=== PATIENT | male | born 2000 | race Caucasian/White ===

== ENCOUNTER 2020-05-02 21:33 | Emergency (ER) | payer BC ==
[2020-05-02] MEDS ORDERED: Ketorolac 60 MG/2 ML SDV IM ONE (22:09)
--- NOTE | 2020-05-02 22:11 | EDM.PDOC ---
ED HPI GENERAL MEDICAL PROBLEM - General Chief Complaint: Cardiovascular Problem Stated Complaint: LEFT SIDE/CHEST PAIN Time Seen by Provider: 05/02/20 22:02 Source of Information: Reports: Patient, Family, RN Notes Reviewed History Limitations: Reports: No Limitations - History of Present Illness INITIAL COMMENTS - FREE TEXT/NARRATIVE: 20-year-old gentleman presents emergency department with a complaint of chest pain, he states he was at rest sudden onset of chest pain 10 out of 10 is now subsided maybe 1 out of 10 he has point specific underneath his left breast in the mid axillary line he was diaphoretic did have some nausea was short of breath Left Pain Score (Numeric/FACES): 2 - Related Data Allergies Allergy/AdvReac Type Severity Reaction Status Date / Time No Known Allergies Allergy Verified 05/02/20 21:44 Home Meds: Home Meds Albuterol [Proventil HFA] 2 puff INH QID PRN 07/02/14 [History] Past Medical History HEENT History: Reports: Otitis Media Respiratory History: Reports: Asthma Gastrointestinal History: Reports: Other (See Below) Other Gastrointestinal History: Impacted bowel. Musculoskeletal History: Reports: Other (See Below) Other Musculoskeletal History: Dislocated patela Neurological History: Reports: Concussion, Migraines Psychiatric History: Reports: ADHD Dermatologic History: Reports: Other (See Below) Other Dermatologic History: acne - Infectious Disease History Infectious Disease History: Reports: Chicken Pox - Past Surgical History Head Surgeries/Procedures: Reports: None HEENT Surgical History: Reports: None Respiratory Surgical History: Reports: None GI Surgical History: Reports: None Neurological Surgical History: Reports: None Musculoskeletal Surgical History: Reports: Arthroscopic Knee, Shoulder Surgery Dermatological Surgical History: Reports: None Social & Family History - Tobacco Use Smoking Status *Q: Never Smoker Second Hand Smoke Exposure: No - Caffeine Use Caffeine Use: Reports: Coffee, Energy Drinks, Soda - Recreational Drug Use Recreational Drug Use: No - Living Situation & Occupation Living situation: Reports: Single, with Family Occupation: Student ED ROS GENERAL - Review of Systems Review Of Systems: See Below Constitutional: Reports: Diaphoresis Respiratory: Reports: Shortness of Breath Cardiovascular: Reports: Chest Pain GI/Abdominal: Reports: Nausea Musculoskeletal: Reports: No Symptoms ED EXAM, GENERAL - Physical Exam Exam: See Below Exam Limited By: No Limitations General Appearance: Alert, WD/WN, No Apparent Distress Respiratory/Chest: No Respiratory Distress, Lungs Clear, Normal Breath Sounds, No Accessory Muscle Use, Chest Non-Tender Cardiovascular: Regular Rate, Rhythm, No Murmur GI/Abdominal: Soft, Non-Tender Course - Vital Signs Last Recorded V/S: Last Vital Signs Temp 97.0 F 05/02/20 21:47 Pulse 58 L 05/02/20 22:59 Resp 10 L 05/02/20 22:59 BP 125/63 05/02/20 22:59 Pulse Ox 99 05/02/20 22:59 - Orders/Labs/Meds Orders: Active Orders 24 hr Category Date Time Status Cardiac Monitoring [RC] .As Directed Care 05/02/20 22:09 Active EKG Documentation Completion [RC] ASDIRECTED Care 05/02/20 22:09 Active Chest 2V [CR] Stat Exams 05/02/20 22:09 Taken EKG 12 Lead [EK] Stat Ther 05/02/20 22:09 Ordered Labs: Laboratory Tests 05/02/20 05/02/20 Range/Units 22:23 22:23 WBC 8.2 (4.5-11.0) K/uL RBC 4.83 (4.30-5.90) M/uL Hgb 14.2 (12.0-15.0) g/dL Hct 41.6 (40.0-54.0) % MCV 86 (80-98) fL MCH 29 (27-31) pg MCHC 34 (32-36) % Plt Count 267 (150-400) K/uL Neut % (Auto) 63 (36-66) % Lymph % (Auto) 27 (24-44) % [place] % (Auto) 7 H (2-6) % Eos % (Auto) 2 (2-4) % Baso % (Auto) 0 (0-1) % Sodium 141 (140-148) mmol/L Potassium 4.2 (3.6-5.2) mmol/L Chloride 104 (100-108) mmol/L Carbon Dioxide 28 (21-32) mmol/L Anion Gap 8.7 (5.0-14.0) mmol/L BUN 14 (7-18) mg/dL Creatinine 1.3 (0.8-1.3) mg/dL Est Cr Clr Drug Dosing 117.18 mL/min Estimated GFR (MDRD) > 60 (>60) Glucose 108 H (74-106) mg/dL Calcium 8.9 (8.5-10.1) mg/dL Total Bilirubin 0.3 (0.2-1.0) mg/dL AST 13 L (15-37) U/L ALT 26 (12-78) U/L Alkaline Phosphatase 63 (46-116) U/L Troponin I < 0.017 (0.000-0.056) ng/mL C-Reactive Protein 0.05 (0.0-0.3) mg/dL Total Protein 7.4 (6.4-8.2) g/dL Albumin 4.0 (3.4-5.0) g/dL Globulin 3.4 (2.3-3.5) g/dL Albumin/Globulin Ratio 1.2 (1.2-2.2) Meds: Medications Discontinued Medications Generic Name Dose Route Start Last Admin Trade Name Freq PRN Reason Stop Dose Admin Ketorolac Tromethamine 60 mg 05/02/20 22:09 05/02/20 22:25 Toradol IM 05/02/20 22:10 60 mg ONETIME ONE Administration Departure - Departure Time of Disposition: 23:28 Disposition: Home, Self-Care 01 Condition: Fair Clinical Impression: Chest wall pain Referrals: Luis Messina MD [Primary Care Provider] - Forms: ED Department Discharge Additional Instructions: Continue with anti-inflammatories please followup with your primary care provider in 3-5 days if not better, please call return to the emergency department with worsening of symptoms. Sepsis Event Note (ED) - Evaluation Sepsis Screening Result: No Definite Risk - Focused Exam Vital Signs: Vital Signs Temp Pulse Resp BP Pulse Ox 05/02/20 22:59 58 L 10 L 125/63 99 05/02/20 22:35 68 20 116/65 97 05/02/20 21:47 97.0 F 73 14 131/68 98 05/02/20 21:44 97.0 F 73 14 131/68 98 - My Orders Last 24 Hours: My Active Orders 05/02/20 22:09 Cardiac Monitoring [RC] .As Directed EKG Documentation Completion [RC] ASDIRECTED Chest 2V [CR] Stat EKG 12 Lead [EK] Stat - Assessment/Plan Last 24 Hours: My Active Orders 05/02/20 22:09 Cardiac Monitoring [RC] .As Directed EKG Documentation Completion [RC] ASDIRECTED Chest 2V [CR] Stat EKG 12 Lead [EK] Stat Plan: Assessment Acuity = acute Site and laterality = chest wall pain Etiology = unknown muscle skeletal Manifestations = none Location of injury = Home Lab values = CBC, CMP, troponin, EKG, chest x-ray all within normal limits Plan Good improvement with Toradol provided in the ED continue with anti- inflammatories follow-up primary care 3 to 5 days if not better This note was dictated using [employer] voice recognition software please call with any questions on syntax or grammar.
[2020-05-02 22:59] VITALS: BP 125/63; PULSE 58
--- NOTE | 2020-05-04 09:45 | CR ---
CHEST: 2 view CLINICAL HISTORY:Chest pain COMPARISON:None FINDINGS: The heart size, pulmonary vascularity and hilar structures are normal. No infiltrate effusion or pneumothorax is seen. IMPRESSION: No acute cardiopulmonary process.
== END 2020-05-02 23:40 | disposition home or self-care (01) ==
LOC: JP.ED 21:33
DX: R07.89 Other chest pain (principal)
CPT/HCPCS: 36415; 71046; 80053; 84484; 85025; 86140; 93005; 96372; 99285; J1885; 93010

== ENCOUNTER 2021-09-22 20:14 | Emergency (ER) | payer BC ==
[2021-09-22 20:27] VITALS: BP 135/78; PULSE 99
--- NOTE | 2021-09-22 20:55 | EDM.PDOC ---
ED HPI GENERAL MEDICAL PROBLEM - General Stated Complaint: RT LEG INJURY Time Seen by Provider: 09/22/21 20:30 Source of Information: Reports: Patient, Family History Limitations: Reports: No Limitations - History of Present Illness INITIAL COMMENTS - FREE TEXT/NARRATIVE: 21-year-old male tried to brace himself with his right leg outside of a bobcat while he was moving today, when his leg got stuck and awkwardly crushed underneath the door area of the bobcat. He has swelling and pain around the ankle, lower right leg and foot. He continued to ambulate for 3 hours afterwards and now has bruising and swelling and significant discomfort. No obvious deformity, no other injury. Onset: Sudden Duration: Hour(s): (Occurred around 6 hours ago) Location: Reports: Lower Extremity, Right Associated Symptoms: Reports: No Other Symptoms Right Ankle Pain Score (Numeric/FACES): 5 - Related Data Allergies Allergy/AdvReac Type Severity Reaction Status Date / Time No Known Allergies Allergy Verified 05/02/20 21:44 Home Meds: Home Meds Albuterol [Proventil HFA] 2 puff INH QID PRN 07/02/14 [History] Past Medical History HEENT History: Reports: Otitis Media Respiratory History: Reports: Asthma Gastrointestinal History: Reports: Other (See Below) Other Gastrointestinal History: Impacted bowel. Musculoskeletal History: Reports: Other (See Below) Other Musculoskeletal History: Dislocated patela Neurological History: Reports: Concussion, Migraines Psychiatric History: Reports: ADHD Dermatologic History: Reports: Other (See Below) Other Dermatologic History: acne - Infectious Disease History Infectious Disease History: Reports: Chicken Pox - Past Surgical History Head Surgeries/Procedures: Reports: None HEENT Surgical History: Reports: None Respiratory Surgical History: Reports: None GI Surgical History: Reports: None Neurological Surgical History: Reports: None Musculoskeletal Surgical History: Reports: Arthroscopic Knee, Shoulder Surgery Dermatological Surgical History: Reports: None Social & Family History - Tobacco Use Tobacco Use Status *Q: Current Every Day Tobacco User Years of Tobacco use: 5 Packs/Tins Daily: 1 - Caffeine Use Caffeine Use: Reports: Coffee, Energy Drinks, Soda - Living Situation & Occupation Living situation: Reports: Single, with Family Occupation: Student Review of Systems - Review of Systems Review Of Systems: See Below Constitutional: Denies: Fever Respiratory: Reports: No Symptoms Cardiovascular: Reports: No Symptoms Genitourinary: Reports: No Symptoms Musculoskeletal: Reports: Other (See HPI) Skin: Reports: Bruising (Some bruising developing over the lateral ankle on the right side) Neurological: Denies: Paresthesia ED EXAM, GENERAL - Physical Exam Exam: See Below Exam Limited By: No Limitations General Appearance: Alert, No Apparent Distress Head: Atraumatic Respiratory/Chest: No Respiratory Distress Extremities: Other (Exam is otherwise limited to the lower extremities. The knees are symmetric and nontender, he has swelling over the lateral malleolus of the right ankle with tenderness to palpation. There is no crepitus but there is significant bony tenderness in the ankle and foot) Neurological: Alert, Oriented Course - Vital Signs Last Recorded V/S: Last Vital Signs Temp 98.6 F 09/22/21 20:26 Pulse 99 09/22/21 20:26 Resp 16 09/22/21 20:26 BP 135/78 09/22/21 20:26 Pulse Ox 99 09/22/21 20:26 - Orders/Labs/Meds Orders: Active Orders 24 hr Category Date Time Status Ankle Min 3V Rt [CR] Stat Exams 09/22/21 20:25 Taken Foot Comp Min 3V Rt [CR] Stat Exams 09/22/21 20:25 Taken - Re-Assessments/Exams Free Text/Narrative Re-Assessment/Exam: 09/22/21 20:53 X-rays were taken of the right foot and right ankle, all were negative. To 3 inch Santos wraps were applied through the foot ankle and lower extremity and he can use crutches for the next few days as he increase his activity. He was discharged with an ankle sprain. Departure - Departure Time of Disposition: 20:59 Disposition: Home, Self-Care 01 Clinical Impression: Sprain of right ankle Qualifiers: Encounter type: initial encounter Involved ligament of ankle: anterior talofibular ligament Qualified Code(s): S93.491A - Sprain of other ligament of right ankle, initial encounter - Discharge Information Instructions: Ankle Sprain Referrals: PCP,None [Primary Care Provider] - Forms: ED Department Discharge Care Plan Goals: Keep foot and lower leg wrapped to reduce swelling, elevate if able, and use crutches for ambulation for the next couple of days. Increase activity as tolerated and use ibuprofen or naproxen for pain control if needed. Consider rechecking next week if not improving satisfactorily. Sepsis Event Note (ED) - Focused Exam Vital Signs: Vital Signs Temp Pulse Resp BP Pulse Ox 09/22/21 20:26 98.6 F 99 16 135/78 99 - My Orders Last 24 Hours: My Active Orders 09/22/21 20:25 Ankle Min 3V Rt [CR] Stat Foot Comp Min 3V Rt [CR] Stat - Assessment/Plan Last 24 Hours: My Active Orders 09/22/21 20:25 Ankle Min 3V Rt [CR] Stat Foot Comp Min 3V Rt [CR] Stat
--- NOTE | 2021-09-24 09:28 | CR ---
FOOT RIGHT 3 views CLINICAL HISTORY:Injury FINDINGS:No fracture or dislocation seen. Articular surfaces are smooth Impression: Negative Ankle Min 3V Rt CLINICAL HISTORY: Injury FINDINGS: The soft tissues are swollen laterally. No acute fracture or dislocation is noted. Ankle mortise is intact. Articular surfaces are smooth Impression: Lateral soft tissue tissue swelling No fracture or dislocation
== END 2021-09-22 21:04 | disposition home or self-care (01) ==
LOC: JP.ED 20:14
DX: S93.491A Sprain of other ligament of right ankle, initial encounter (principal); Z72.0 Tobacco use; W22.09XA Striking against other stationary object, initial encounter
CPT/HCPCS: 73610-26-RT; 73610-RT; 73630-26-RT; 73630-RT; 99283-25